=== PATIENT | female | born 1980 | race Hispanic/Latino ===

== ENCOUNTER 2018-12-12 16:30 | Emergency (ER) | payer MEDICAID, OTHER ==
--- NOTE | 2018-12-12 16:38 | Event Note ---
ED Screening Note Date of service: 12/12/18 Time: 16:34 ED Screening Note: This is a 38 y.o. n/v/d, abdominal discomfort, weak since yesterday. PMH CVA, HTN LMP 12/08/2018 Denies pain This initial assessment/diagnostic orders/clinical plan/treatment(s) is/are subject to change based on patients health status, clinical progression and re- assessment by fellow clinical providers in the ED. Further treatment and workup at subsequent clinical providers discretion. Patient/guardian urged not to elope from the ED as their condition may be serious if not clinically assessed and managed. Initial orders include: Labs
[2018-12-12 17:03] LABS: Basophils # (Auto) 0.1 K/mm3 (0.0-0.1); Basophils % (Auto) 0.9 % (0.0-1.8); Eosinophils # (Auto) 0.1 K/mm3 (0.0-0.4); Eosinophils % (Auto) 1.6 % (0.0-4.3); Hematocrit 38.7 % (30.3-42.9); Hemoglobin 13.2 gm/dl (10.1-14.3); Lymphocytes # (Auto) 1.5 K/mm3 (1.2-5.4); Lymphocytes % (Auto) 24.9 % (13.4-35.0); Mean Corpuscular HGB Conc 34 % (30-34); Mean Corpuscular Volume 93 fl (79-97); Monocytes # (Auto) 0.3 K/mm3 (0.0-0.8); Monocytes % (Auto) 5.4 % (0.0-7.3); Platelet Count 289 K/mm3 (140-440); Red Blood Count 4.15 M/mm3 (3.65-5.03); Red Cell Distribution Width 13.7 % (13.2-15.2)
[2018-12-12 17:14] LABS: Bacteria,Urine 1+ /HPF (Negative); Bilirubin,Urine NEG (Negative); Blood,Urine NEG (Negative); Color,Urine Yellow (Yellow); Mucus,Urine FEW /HPF; Protein,Urine <15 mg/dL mg/dL (Negative); Urobilinogen,Urine < 2.0 mg/dL (<2.0)
[2018-12-12] MEDS ORDERED: BENTYL IM ONE (17:23)
[2018-12-12] MEDS ORDERED: NACL 0.9% 1000 ML 1,000 ML IV ONE (17:23)
[2018-12-12] MEDS ORDERED: ZOFRAN IV ONE (17:23)
[2018-12-12 17:44] LABS: Alanine Aminotransferase 17 units/L (7-56); Albumin 4.9 g/dL (3.9-5); BUN/Creatinine Ratio 23; Blood Urea Nitrogen 14 mg/dL (7-17); Calcium 9.6 mg/dL (8.4-10.2); Hemolysis Index 21
--- NOTE | 2018-12-12 18:25 | Emergency Department Report ---
ED N/V/D HPI - General Chief complaint: Nausea/Vomiting/Diarrhea Stated complaint: STOMACH DISCOMFORT Time Seen by Provider: 12/12/18 16:34 Source: patient Mode of arrival: Ambulatory Limitations: No Limitations - History of Present Illness Initial comments: Patient is a 38-year-old female presents to the emergency room with complaints of nausea, vomiting, diarrhea that began yesterday. She has associated generalized weakness and feeling like a "churning/cramping sensation" in her stomach. Denies any abdominal pain, fever, urinary symptoms. she is able to tolerate by mouth intake. She has a past surgical history of ectopic, lithotripsy, previous feeding tube. States he has an allergy to penicillin and intolerance to Toradol and ibuprofen. - Related Data Home Medications Medication Instructions Recorded Confirmed Last Taken Venlafaxine Xr [Effexor Xr] 75 mg PO QDAY 06/08/14 06/08/14 06/08/14 Previous Rx's Medication Instructions Recorded Last Taken Type Acetaminophen/Codeine 1 tab PO Q6H PRN #10 tab 06/09/14 Unknown Rx [Acetaminophen-Codeine #3 TAB] medroxyPROGESTERone ACETATE 10 mg PO QDAY #10 tablet 06/09/14 Unknown Rx [Provera] Dicyclomine [Bentyl] 20 mg PO QID PRN #20 tablet 12/12/18 Unknown Rx Ondansetron [Zofran Odt] 4 mg PO Q8HR PRN #14 tab.rapdis 12/12/18 Unknown Rx Allergies Allergy/AdvReac Type Severity Reaction Status Date / Time ketorolac tromethamine Allergy Hives Verified 12/12/18 16:34 [From Toradol] ibuprofen AdvReac Unknown Verified 12/12/18 16:34 Penicillins AdvReac Hives Verified 12/12/18 16:34 ED Review of Systems ROS: Stated complaint: STOMACH DISCOMFORT Other details as noted in HPI Comment: All other systems reviewed and negative ED Past Medical Hx - Past Medical History Previous Medical History?: Yes Hx Hypertension: Yes Hx CVA: Yes (pt states hx of 5 strokes.) Hx Headaches / Migraines: Yes Hx Kidney Stones: Yes Additional medical history: Endometriosis - Surgical History Past Surgical History?: Yes Additional Surgical History: Hx. of ectopic , lithotripsy - Social History Smoking Status: Former Smoker Substance Use Type: None - Medications Home Medications: Home Medications Medication Instructions Recorded Confirmed Last Taken Type Venlafaxine Xr [Effexor Xr] 75 mg PO QDAY 06/08/14 06/08/14 06/08/14 History Acetaminophen/Codeine 1 tab PO Q6H PRN #10 tab 06/09/14 Unknown Rx [Acetaminophen-Codeine #3 TAB] medroxyPROGESTERone ACETATE 10 mg PO QDAY #10 tablet 06/09/14 Unknown Rx [Provera] Dicyclomine [Bentyl] 20 mg PO QID PRN #20 tablet 12/12/18 Unknown Rx Ondansetron [Zofran Odt] 4 mg PO Q8HR PRN #14 tab.rapdis 12/12/18 Unknown Rx ED Physical Exam - General Limitations: No Limitations General appearance: alert, in no apparent distress - Head Head exam: Present: atraumatic, normocephalic - Eye Eye exam: Present: normal appearance - ENT ENT exam: Present: mucous membranes moist - Respiratory Respiratory exam: Present: normal lung sounds bilaterally. Absent: respiratory distress, wheezes, rales, rhonchi, stridor, accessory muscle use, decreased breath sounds, prolonged expiratory - Cardiovascular Cardiovascular Exam: Present: regular rate, normal rhythm, normal heart sounds. Absent: systolic murmur, diastolic murmur, rubs, gallop - GI/Abdominal GI/Abdominal exam: Present: soft, normal bowel sounds. Absent: distended, tenderness, guarding, rebound, rigid - Back Exam Back exam: Absent: CVA tenderness (R), CVA tenderness (L) - Neurological Exam Neurological exam: Present: alert, oriented X3, CN II-XII intact, normal gait, other (equal comber setter strength, 5/5 strength in the BUE/BLE, sensation intact throughout, no focal neuro deficit). Absent: motor sensory deficit - Psychiatric Psychiatric exam: Present: normal affect, normal mood - Skin Skin exam: Present: warm, dry, intact ED Course Vital Signs 12/12/18 12/12/18 16:34 18:40 Temperature 98.3 F Pulse Rate 91 H 59 L Respiratory 16 20 Rate Blood Pressure 159/97 120/81 [Right] O2 Sat by Pulse 97 100 Oximetry ED Medical Decision Making - Lab Data Result diagrams: 12/12/18 16:44 12/12/18 16:44 - Medical Decision Making Patient is a 38-year-old female presents to the emergency room with complaints of nausea, vomiting, diarrhea that began yesterday. She has associated generalized weakness and feeling like a "churning/cramping sensation" in her stomach. Denies any abdominal pain, fever, urinary symptoms. she is able to tolerate by mouth intake. She has a past surgical history of ectopic, lithotripsy, previous feeding tube. States he has an allergy to penicillin and intolerance to Toradol and ibuprofen. VSS. no abd tenderness on exam. labs WNL. UA without evidence of UTI. pt given 1L of normal saline, zofran, and bentyl and her symptoms improved. pt had no further episodes of emesis or diarrhea while in the ED, she was able to tolerate PO intake. pt given prescription for zofran and bentyl. discussed to take medication as prescribed as needed. advised to increase fluid intake over the next several days. eat a bland diet. follow up wi th a primary care doctor in the next 2-3 days. return to the emergency room for any new or worsening symptoms. - Differential Diagnosis gastroenteritis, colitis, viral syndrome, IBS, IBD Critical care attestation.: If time is entered above; I have spent that time in minutes in the direct care of this critically ill patient, excluding procedure time. ED Disposition Clinical Impression: Nausea vomiting and diarrhea Disposition: - TO HOME OR SELFCARE Is pt being admited?: No Does the pt Need Aspirin: No Condition: Stable Instructions: Acute Nausea and Vomiting (ED) Additional Instructions: take medication as prescribed as needed. please increase fluid intake over the next several days. eat a bland diet. follow up with a primary care doctor in the next 2-3 days. return to the emergency room for any new or worsening symptoms. Prescriptions: Dicyclomine [Bentyl] 20 mg PO QID PRN #20 tablet PRN Reason: abdominal cramping Ondansetron [Zofran Odt] 4 mg PO Q8HR PRN #14 tab.rapdis PRN Reason: Nausea And Vomiting Referrals: WILIAN FINNEGAN MD [Primary Care Provider] - 2-3 Days Forms: Work/School Release Form(ED) Time of Disposition: 18:25 Print Language: AMHARIC
[2018-12-12 18:41] VITALS: BP 120/81
== END 2018-12-12 18:40 | disposition home or self-care (01) ==
LOC: ED 16:30
DX: R11.2 Nausea with vomiting, unspecified (principal); R19.7 Diarrhea, unspecified; R53.1 Weakness; I10 Essential (primary) hypertension; I25.2 Old myocardial infarction; G43.909 Migraine, unspecified, not intractable, without status migrainosus; Z87.891 Personal history of nicotine dependence; Z79.899 Other long term (current) drug therapy; Z88.0 Allergy status to penicillin; Z88.6 Allergy status to analgesic agent
CPT/HCPCS: 36415; 80053; 81001; 83690; 84703; 85025; 96361; 96372; 96374; 99283; J0500; J2405; J7030

== ENCOUNTER 2019-07-07 09:09 | Emergency (ER) | payer SELFPAY ==
[2019-07-07 09:16] VITALS: BP 130/62
--- NOTE | 2019-07-07 11:04 | Emergency Department Report ---
Chief Complaint: Dental/Oral Stated Complaint: MOUTH SWOLLEN Time Seen by Provider: 07/07/19 09:54 - HPI History of Present Illness: 39-year-old female presents to the emergency room complaining of right side jaw swelling since Friday night. Patient states that she has started taking some penicillin that she had. Patient also reports is been taken ibuprofen which is helped with the pain. Patient denies any difficulty swallowing no difficulty breathing no fever, no chills. - Exam Vital Signs: Vital Signs 07/07/19 09:15 Temperature 98 F Pulse Rate 89 Respiratory 16 Rate Blood Pressure 130/62 O2 Sat by Pulse 100 Oximetry Physical Exam: Patient is alert and oriented x3 no acute distress. Nontoxic in appearance afebrile. Right side lower jaw mild swelling no gingiva enlargement no Alex angina, airway patent, no purulent discharge not erythematous. MSE screening note: Focused history and physical exam performed. Due to findings the following was ordered: Patient is stable has no Alex angina, she is afebrile airway is patent recommend patient to follow-up with Dr. Lucero Vivar today, urgent care and or 1 of the dentists in the community. I have listed their information below for her convenience. ED Disposition for MSE Disposition: Z- MED SCREENING EXAM-LEFT Is pt being admited?: No Does the pt Need Aspirin: No Condition: Stable Additional Instructions: Recommend to follow up at Dr. Evangelista or an urgent care. Can continue with Ibuprofen and or Tylenol. Referral to dentist. Referrals: PRIMARY CAREMD [Primary Care Provider] - 3-5 Days JOSE EVANGELISTA MD [Staff Physician] - 3-5 Days [facility] [Outside] - 3-5 Days [facility] [Outside] - 3-5 Days [facility] [Outside] - 3-5 Days Forms: Work/School Release Form(ED)
== END 2019-07-07 11:10 | disposition left against medical advice (07) ==
LOC: ED 09:09
DX: R68.84 Jaw pain (principal); Z88.0 Allergy status to penicillin; Z88.6 Allergy status to analgesic agent
CPT/HCPCS: 99281